=== PATIENT | male | born 1970 | race Caucasian/White ===

== ENCOUNTER → 2017-06-01 13:50 | Outpatient (CLI) | payer BC ==
[2017-06-02 12:14] LABS: IMMUNOGLOBULIN A 260 mg/dL (90-386)
== END | disposition home or self-care (01) ==
LOC: D.LAB 05-11 11:45
PROVIDERS: Internal Medicine Gastroenterology
DX: R12 Heartburn (principal); R11.0 Nausea

== ENCOUNTER → 2017-06-27 06:56 | Outpatient (CLI) | payer BC | LOC: D.LAB 06:56 | DX: E29.1 Testicular hypofunction (principal) ==

== ENCOUNTER → 2017-08-08 06:59 | Outpatient (CLI) | payer BC ==
[2017-08-10 03:10] LABS: TESTOSTERONE - FREE 5.2 pg/mL (6.8-21.5); TESTOSTERONE - SERUM 148 ng/dL (264-916)
== END | disposition home or self-care (01) ==
LOC: D.LAB 06:59
PROVIDERS: Urology
DX: R79.89 Other specified abnormal findings of blood chemistry (principal)

== ENCOUNTER 2017-10-01 17:13 | Emergency (ER) | payer BC ==
[2017-10-01 18:29] LABS: BASOPHILS 0.1 % (0-2); EOSINOPHILS 1.6 % (0-7); HEMATOCRIT 43.9 % (42.0-54.0); HEMOGLOBIN 14.7 g/dL (13.5-17.5); IMMATURE GRANULOCYTES 0.3 % (0-5); LYMPHOCYTES 18.7 % (15-50); MCH 34.3 pg (26.0-34.0); MCHC 33.5 g/dL (31.0-37.0); MCV 102.3 fL (80.0-100.0); MEAN PLATELET VOLUME 9.6 fL (7.4-10.4); MONOCYTES 10.1 % (2-11); NEUTROPHILS 69.2 % (40-80); PLATELET COUNT 195 10x3/uL (130-400); RBC 4.29 10x6/uL (4.20-6.10); WBC 8.7 10x3/uL (4.8-10.8)
[2017-10-01 18:58] LABS: ALBUMIN 2.8 g/dL (3.4-5.0); ALKALINE PHOSPHATASE 69 U/L (46-116); ALT (SGPT) 31 U/L (10-68); CALC OSMOLALITY 276 mosm/kg (275-300); CALCIUM 9.2 mg/dL (8.5-10.1); CHLORIDE - SERUM 102 mmol/L (98-107); CREATININE - SERUM 0.9 mg/dL (0.6-1.3); GLUCOSE 124 mg/dL (74-106); POTASSIUM - SERUM 4.6 mmol/L (3.5-5.1); PROTEIN - SERUM 7.8 g/dL (6.4-8.2); SODIUM 139 mmol/L (136-145); UREA NITROGEN 7 mg/dL (7-18); eGFR NON AFRICAN AMERICAN > 90 mL/min (90-120)
== END 2017-10-01 19:37 | disposition home or self-care (01) ==
LOC: D.ER 17:13
PROVIDERS: Physician Assistant
DX: J01.90 Acute sinusitis, unspecified (principal); R50.9 Fever, unspecified; J20.9 Acute bronchitis, unspecified; K21.9 Gastro-esophageal reflux disease without esophagitis; I10 Essential (primary) hypertension; F17.200 Nicotine dependence, unspecified, uncomplicated

== ENCOUNTER → 2017-11-13 13:41 | Outpatient (CLI) | payer BC | END | disposition home or self-care (01) | LOC: D.MRI 13:41 | DX: M54.5 Low back pain (principal) ==

== ENCOUNTER → 2017-11-28 11:27 | Outpatient (CLI) | payer BC | END | disposition home or self-care (01) | LOC: D.CT 11-24 15:00 | DX: M54.5 Low back pain (principal) ==